=== PATIENT | male | born 1975 | race Caucasian/White ===

== ENCOUNTER 2018-07-24 12:57 | Emergency (ER) | payer MEDICAID ==
[~2018-07-24] VITALS: Wt 79.9 kg
[2018-07-24] MEDS ORDERED: KETOROLAC 30 MG INJ IV STA (13:10)
[2018-07-24] MEDS ORDERED: SOD CHLORIDE 0.9% 1,000 ML IV STA (13:10)
[2018-07-24] MEDS ORDERED: ACETAMINOPHEN 500 MG TAB PO STA (13:10)
--- NOTE | 2018-07-24 13:50 | ERD ---
ER Documentation Chief Complaint Chief Complaint fever,body achea,ap since HPI During the patient's encounter translation services were utilized Language: Ecuadorean Source: In person 43-year-old male no past medical history presents to the emergency room with 12 to 24 hours of symptoms including fevers, chills, body aches. Gradual onset frontal headache that is throbbing, not sudden. Patient also notes mild suprapubic abdominal discomfort without localization. He return urgent care and they told him that he had microscopic hematuria and was sent to the emergency room. He denies any flank pain or history of renal stones. Patient denies any rash or neck stiffness. ROS All systems reviewed and are negative except as per history of present illness. Medications Home Meds Active Scripts Ibuprofen* (Motrin*) 800 Mg Tab, 800 MG PO Q6H PRN for PAIN AND OR ELEVATED TEMP, #30 TAB Prov:YEN RIDDLE MD 07/24/18 Allergies Allergies: Coded Allergies: No Known Allergy (Unverified , 07/24/18) FmHx Family History: No diabetes Physical Exam Vitals Vital Signs Date Temp Pulse Resp B/P (MAP) Pulse Ox O2 O2 Flow FiO2 Time Delivery Rate 07/24/18 99.4 79 16 124/83 99 Room Air 16:04 (97) 07/24/18 101.3 76 18 128/85 99 Room Air 14:26 (99) 07/24/18 103.2 13:30 07/24/18 102.1 95 18 160/84 99 13:02 (109) Physical Exam General: Well developed, well nourished, no acute distress Head: Normocephalic, atraumatic. Eyes: Pupils equally reactive, EOM intact ENT: Moist mucous membranes Neck: Supple, no lymphadenopathy Respiratory: Lungs clear bilaterally, no distress Cardiovascular: RRR, no murmurs, rubs, or gallops Abdominal: Soft, non-tender, non-distended, no peritoneal signs, negative Hathaway sign, no tenderness to McBurney's point : Deferred MSK: No edema, no unilateral swelling, 5/5 strength Neurologic: Alert and oriented, moving all extremities, normal speech, no focal weakness, no cerebellar signs, no meningismus Skin: No rash Psych: Normal mood Result Diagram: 07/24/18 1317 07/24/18 1317 Results 24 hrs Laboratory Tests Test 07/24/18 13:17 07/24/18 13:20 07/24/18 15:25 White Blood Count 4.8 10^3/ul Red Blood Count 5.58 10^6/ul Hemoglobin 17.0 g/dl Hematocrit 48.1 % Mean Corpuscular Volume 86.2 fl Mean Corpuscular Hemoglobin 30.5 pg Mean Corpuscular 35.3 g/dl Hemoglobin Concent Red Cell Distribution Width 12.1 % Platelet Count 148 10^3/UL Mean Platelet Volume 10.0 fl Immature Granulocytes % 0.200 % Neutrophils % 61.6 % Lymphocytes % 24.2 % Monocytes % 13.6 % Eosinophils % 0.0 % Basophils % 0.4 % Nucleated Red Blood Cells % 0.0 /100WBC Immature Granulocytes # 0.010 10^3/ul Neutrophils # 3.0 10^3/ul Lymphocytes # 1.2 10^3/ul Monocytes # 0.7 10^3/ul Eosinophils # 0.0 10^3/ul Basophils # 0.0 10^3/ul Nucleated Red Blood Cells # 0.0 10^3/ul Sodium Level 141 mmol/L Potassium Level 3.3 mmol/L Chloride Level 102 mmol/L Carbon Dioxide Level 28 mmol/L Anion Gap 11 Blood Urea Nitrogen 12 mg/dl Creatinine 0.82 mg/dl Est Glomerular Filtrat > 60 mL/min Rate mL/min Glucose Level 124 mg/dl Calcium Level 8.9 mg/dl Total Bilirubin 0.9 mg/dl Direct Bilirubin 0.00 mg/dl Indirect Bilirubin 0.9 mg/dl Aspartate Amino 215 IU/L Transf (AST/SGOT) Alanine 119 IU/L Aminotransferase (ALT/SGPT) Alkaline Phosphatase 74 IU/L Total Protein 8.1 g/dl Albumin 4.3 g/dl Globulin 3.80 g/dl Albumin/Globulin Ratio 1.13 Lipase 103 U/L POC Venous Lactate 0.8 mmol/L Urine Color MAGDA Urine Clarity CLEAR Urine pH 6.0 Urine Specific Hubbard 1.023 Urine Ketones 1+ mg/dL Urine Nitrite NEGATIVE mg/dL Urine Bilirubin NEGATIVE mg/dL Urine Urobilinogen 2+ mg/dL Urine Leukocyte Esterase NEGATIVE Jhoan/ul Urine Microscopic RBC 2 /HPF Urine Microscopic WBC 3 /HPF Urine Mucus FEW /HPF Urine Hemoglobin 1+ mg/dL Urine Glucose NEGATIVE mg/dL Urine Total Protein 1+ mg/dl Current Medications Medications Dose Sig/Marc Start Time Status Last (Trade) Ordered Route PRN Stop Time Admin Dose Reason Admin Sodium 1,000 ml @ Q1H STAT 07/24/18 DC 07/24/18 Chloride 1,000 mls/hr IV 13:10 13:30 07/24/18 14:09 Ketorolac 30 mg ONCE STAT 07/24/18 DC 07/24/18 Tromethamine IV 13:10 13:30 (Toradol) 07/24/18 13:12 1,000 mg ONCE STAT 07/24/18 DC 07/24/18 Acetaminophen PO 13:10 13:30 (Tylenol 07/24/18 13:12 Tab) Procedures/MDM LAB INTERPRETATION: I reviewed the laboratory testing and it shows nonspecific transaminitis and microscopic hematuria MEDICAL DECISION MAKING: The patient's presentation seems very consistent with viral syndrome. He has no localizing factors. His abdominal exam is benign. No signs of acute appendicitis or hepatobiliary process. No cough or respiratory symptoms to suggest pneumonia. Clinically no signs or symptoms concerning for meningitis. Again no localizing symptoms. The patient was told that he had microscopic hematuria. Unclear etiology. Patient will benefit from laboratory testing and urinalysis. No evidence of ureterolithiasis or nephrolithiasis to warrant CT imaging at this time. ER COURSE: * Patient's laboratory testing is reassuring. The patient is feeling much better after antipyretics and IV fluids. Microscopic hematuria is noted, outpatient follow-up is certainly appropriate. No evidence of the patient warrant CT imaging of the abdomen pelvis. This is not consistent with a urinary tract infection. CONSULTATION: None DISPOSITION PLAN: The patient does not have an identifiable emergent medical condition that war rants inpatient hospitalization at this time. The patient is deemed safe for discharge with outpatient follow-up. We discussed follow up with the patient's primary care doctor within 24 to 48 hours as needed. We also discussed return to the emergency room for worsening symptoms or worsening condition. Outpatient referral: None required Discharge Medications: Motrin Departure Diagnosis: Primary Impression: Acute viral syndrome Additional Impression: Microscopic hematuria Condition: Stable YEN RIDDLE MD July 24, 2018 13:50
[2018-07-24] MEDS ORDERED: IBUP800T48 PO (15:57)
[2018-07-24 16:04] VITALS: BP 124/83; PULSE 79; RESP 16
== END 2018-07-24 16:35 | disposition home or self-care (01) ==
LOC: E/R 12:57
DX: B34.9 Viral infection, unspecified (principal); R31.29 Other microscopic hematuria
CPT/HCPCS: 36415; 80053; 81001; 83605; 83690; 85025; 96374; J1885; J7030; Z7502; Z7610